=== PATIENT | male | born 1945 | race Native Hawaiian/Other Pacific Islander ===

== ENCOUNTER 2022-03-18 11:07 | Outpatient (CLI) | payer OTHER | END 2022-03-18 19:01 | disposition home or self-care (01) | LOC: US 11:07 | PROVIDERS: ATTEND Specialist | DX: I10 Essential (primary) hypertension (principal); E66.3 Overweight; R09.89 Other specified symptoms and signs involving the circulatory and respiratory systems; I35.2 Nonrheumatic aortic (valve) stenosis with insufficiency; I36.1 Nonrheumatic tricuspid (valve) insufficiency; I34.0 Nonrheumatic mitral (valve) insufficiency; E78.2 Mixed hyperlipidemia ==